=== PATIENT | female | born 1970 | race Caucasian/White ===

== ENCOUNTER 2016-07-15 09:00 | Emergency (ER) | payer OTHER ==
--- NOTE | 2016-07-15 09:37 | ED CLINICAL REPORT ---
Clinical Report - Physicians/Mid Levels [facility] [address] [place] [address] 07/15/2016 9:02 [id number] Time Seen: 09:08; initial patient contact. Arrived- By private vehicle. Historian- patient. HISTORY OF PRESENT ILLNESS Chief Complaint: Injury to right shoulder. The injury happened several months ago. Occurred at home. Fell; slipped (slipped on ice and braced her fall w/ her R arm jarring her shoulder.). Patient is experiencing moderate pain. Patient denies injury to the head or neck. ( Had plain films done, neg per pt. Awaiting MRI. Has not seen ortho.). REVIEW OF SYSTEMS The patient has had weakness. No swelling, tingling or numbness. She has had joint pain. All systems otherwise negative, except as recorded above. PAST HISTORY Lumbar Strain. Fibromyalgia. Migraine Headache. Pneumonia. MRSA. Cough. Bronchitis. Atypical Chest Pain. Arrhythmia. Murmur. SURGERIES: Appendectomy. Brain . Cholecystectomy. Hysterectomy. Knee. Tubal Ligation. The patient's dominant hand is the right and left. SOCIAL HISTORY Current every day smoker. ADDITIONAL NOTES The nursing notes have been reviewed with agreement regarding the chief complaint, PMH and patient medications and allergies. PHYSICAL EXAM Vital Signs: 07/15/2016 09:13 BP: 111/74. HR: 78. RR: 16. O2 saturation: 97%. Temp: 97.8 F. Have been reviewed as normal. Appearance: Alert. Oriented X3. No acute distress. Head: Head atraumatic. Skin: Skin intact. Normal skin color. Extremities: Right shoulder: moderate tenderness located in the deltoid muscle. Limited ROM due to pain (diminished abduction, flexion, extension and external and internal rotation). Neurovascular intact distally. No erythema, swelling or deformity. Extremities otherwise negative. Neuro, Vascular and Tendons: Sensation intact. Motor intact. Vascular status intact. Tendon function intact. Neuro: Oriented X 3. No motor deficit. PROGRESS AND PROCEDURES Disposition: Discharged home in good condition. Condition: good. CLINICAL IMPRESSION Traumatic right rotator cuff sprain. INSTRUCTIONS Apply ice for 20 minutes four times a day as needed. Don't apply ice directly to skin. Limit use of your right hand until better. Your Current Medications: CONTINUE TAKING THE FOLLOWING MEDICATIONS: Hydrocodone-Acetaminophen Oral : 10 mg 3x a day, prn. LaMICtal Oral : 50 mg daily. Omeprazole Oral. Topamax Oral : Tablet 50 mg, 2x a day. Tramadol HCL Oral : 50 mg 2x a day, chronic migraines. Prescription Medications: Diclofenac 50 mg tablets: take 1 tablet orally every 8 hours as needed for pain or stiffness. Dispense thirty (30). No refill. Follow-up: Screening today revealed the patient's blood pressure to be in the normal range. [facility] with: [facility], , [address] [place], [id number] Follow up in about one day. Call for an appointment. (Electronically signed by Reilly Reina Dr. 07/15/2016 9:39)
--- NOTE | 2016-07-15 09:37 | ED NURSING NOTES ---
Clinical Report - Nurses [facility] [address] [place] [address] 07/15/2016 9:02 [id number] TRI[facility] Triage time 09:09. Acuity: LEVEL 4. Chief Complaint: RIGHT UPPER EXTREMITY PAIN. Alert. --09:12 Tiny Covarrubias R.N. 09:13 07/15/16. BP: 111/74. HR: 78. RR: 16. O2 saturation: 97%. Temp: 97.8 F. Pain level now 12/02. --09:14 Tiny Covarrubias R.N. Weight: 71.6 kg stated. Height/Length: 69 inches Per Patient. BMI: 23.3. --09:08 Tiny Covarrubias R.N. Medications Hydrocodone-Acetaminophen Oral 10 mg, 3x a day as needed. LaMICtal Oral 50 mg, daily. Omeprazole Oral. Topamax Oral (Tablet 50 mg), 2x a day. Tramadol HCL Oral 50 mg, 2x a day, chronic migraines. --09:12 Tiny Covarrubias R.N. Allergies Latex. Percocet. Sulfa Antibiotics. --09:12 Tiny Covarrubias R.N. History Arrived by private vehicle. Historian: patient. Primary physician ([place]). Injury occurred. This occurred (2 months). ( Slipped on ice and still hurleeann LOAIZA told her she may have a torn rotator cuff and wants answers.). Treatment TOWER HAND: Ice. SOCIAL HX: Heavy tobacco smoker (cigarette)- less than 1 pack per day. --09:12 Tiny Covarrubias R.N. PROBLEMS: Lumbar Strain. Fibromyalgia. Migraine Headache. Pneumonia. MRSA. Cough. Bronchitis. Atypical Chest Pain. Arrhythmia. Murmur. --09:12 Tiny Covarrubias R.N. ADDITIONAL SURGERIES: Appendectomy. Brain . Cholecystectomy. Hysterectomy. Knee. Tubal Ligation. --09:12 Maziarka, Tiny, R.N. PHYSICAL ASSESSMENT Ambulatory to room. GENERAL / NEURO / PSYCH: Appears in no acute distress. EXTREMITIES: Right shoulder. --09:14 Tiny Covarrubias R.N. NURSING PROGRESS NOTES Two patient identifiers checked. Call light placed in reach. Patient ready for evaluation- ED physician notified. --09:14 Tiny Covarrubias R.N. DISPOSITION / DISCHARGE Departure time: 09:47. No learning barriers present. Discharge instructions provided and reviewed with the patient. Patient verbalized understanding. Written instructions provided in Nigerian. The patient was discharged home. She left the Emergency Department ambulatory and via private vehicle. Patient driving. --09:47 Tiny Covarrubias R.N. Locked/Released at 07/15/2016 9:48 by Tiny Covarrubias R.N.
--- NOTE | 2016-07-15 09:37 | ED CLINICAL REPORT ---
Clinical Report - Physicians/Mid Levels [facility] [address] [place] [address] 07/15/2016 9:02 [id number] Time Seen: 09:08; initial patient contact. Arrived- By private vehicle. Historian- patient. HISTORY OF PRESENT ILLNESS Chief Complaint: Injury to right shoulder. The injury happened several months ago. Occurred at home. Fell; slipped (slipped on ice and braced her fall w/ her R arm jarring her shoulder.). Patient is experiencing moderate pain. Patient denies injury to the head or neck. ( Had plain films done, neg per pt. Awaiting MRI. Has not seen ortho.). REVIEW OF SYSTEMS The patient has had weakness. No swelling, tingling or numbness. She has had joint pain. All systems otherwise negative, except as recorded above. PAST HISTORY Lumbar Strain. Fibromyalgia. Migraine Headache. Pneumonia. MRSA. Cough. Bronchitis. Atypical Chest Pain. Arrhythmia. Murmur. SURGERIES: Appendectomy. Brain . Cholecystectomy. Hysterectomy. Knee. Tubal Ligation. The patient's dominant hand is the right and left. SOCIAL HISTORY Current every day smoker. ADDITIONAL NOTES The nursing notes have been reviewed with agreement regarding the chief complaint, PMH and patient medications and allergies. PHYSICAL EXAM Vital Signs: 07/15/2016 09:13 BP: 111/74. HR: 78. RR: 16. O2 saturation: 97%. Temp: 97.8 F. Have been reviewed as normal. Appearance: Alert. Oriented X3. No acute distress. Head: Head atraumatic. Skin: Skin intact. Normal skin color. Extremities: Right shoulder: moderate tenderness located in the deltoid muscle. Limited ROM due to pain (diminished abduction, flexion, extension and external and internal rotation). Neurovascular intact distally. No erythema, swelling or deformity. Extremities otherwise negative. Neuro, Vascular and Tendons: Sensation intact. Motor intact. Vascular status intact. Tendon function intact. Neuro: Oriented X 3. No motor deficit. PROGRESS AND PROCEDURES Disposition: Discharged home in good condition. Condition: good. CLINICAL IMPRESSION Traumatic right rotator cuff sprain. INSTRUCTIONS Apply ice for 20 minutes four times a day as needed. Don't apply ice directly to skin. Limit use of your right hand until better. Your Current Medications: CONTINUE TAKING THE FOLLOWING MEDICATIONS: Hydrocodone-Acetaminophen Oral : 10 mg 3x a day, prn. LaMICtal Oral : 50 mg daily. Omeprazole Oral. Topamax Oral : Tablet 50 mg, 2x a day. Tramadol HCL Oral : 50 mg 2x a day, chronic migraines. Prescription Medications: Diclofenac 50 mg tablets: take 1 tablet orally every 8 hours as needed for pain or stiffness. Dispense thirty (30). No refill. Follow-up: Screening today revealed the patient's blood pressure to be in the normal range. [facility] with: [facility], , [address] [place], [id number] Follow up in about one day. Call for an appointment. (Electronically signed by Reilly Reina Dr. 07/15/2016 9:39)
--- NOTE | 2016-07-15 09:37 | ED NURSING NOTES ---
Clinical Report - Nurses [facility] [address] [place] [address] 07/15/2016 9:02 [id number] TRIAGE Triage time 09:09. Acuity: LEVEL 4. Chief Complaint: RIGHT UPPER EXTREMITY PAIN. Alert. --09:12 Tiny Covarrubias R.N. 09:13 07/15/16. BP: 111/74. HR: 78. RR: 16. O2 saturation: 97%. Temp: 97.8 F. Pain level now 12/02. --09:14 Tiny Covarrubias R.N. Weight: 71.6 kg stated. Height/Length: 69 inches Per Patient. BMI: 23.3. --09:08 Tiny Covarrubias R.N. Medications Hydrocodone-Acetaminophen Oral 10 mg, 3x a day as needed. LaMICtal Oral 50 mg, daily. Omeprazole Oral. Topamax Oral (Tablet 50 mg), 2x a day. Tramadol HCL Oral 50 mg, 2x a day, chronic migraines. --09:12 Tiny Covarrubias R.N. Allergies Latex. Percocet. Sulfa Antibiotics. --09:12 Tiny Covarrubias R.N. History Arrived by private vehicle. Historian: patient. Primary physician ([place]e). Injury occurred. This occurred (2 months). ( Slipped on ice and still hurleeann LOAIZA told her she may have a torn rotator cuff and wants answers.). Treatment ROD POINTER: Ice. SOCIAL HX: Heavy tobacco smoker (cigarette)- less than 1 pack per day. --09:12 Tiny Covarrubias R.N. PROBLEMS: Lumbar Strain. Fibromyalgia. Migraine Headache. Pneumonia. MRSA. Cough. Bronchitis. Atypical Chest Pain. Arrhythmia. Murmur. --09:12 Tiny Covarrubias R.N. ADDITIONAL SURGERIES: Appendectomy. Brain . Cholecystectomy. Hysterectomy. Knee. Tubal Ligation. --09:12 Maziarka, Tiny, R.N. PHYSICAL ASSESSMENT Ambulatory to room. GENERAL / NEURO / PSYCH: Appears in no acute distress. EXTREMITIES: Right shoulder. --09:14 Tiny Covarrubias R.N. NURSING PROGRESS NOTES Two patient identifiers checked. Call light placed in reach. Patient ready for evaluation- ED physician notified. --09:14 Tiny Covarrubias R.N. DISPOSITION / DISCHARGE Departure time: 09:47. No learning barriers present. Discharge instructions provided and reviewed with the patient. Patient verbalized understanding. Written instructions provided in Sri [place]ankan. The patient was discharged home. She left the Emergency Department ambulatory and via private vehicle. Patient driving. --09:47 Tiny Covarrubias R.N. Locked/Released at 07/15/2016 9:48 by Tiny Covarrubias R.N.
--- NOTE | 2016-07-15 09:48 | ED MAR SUMMARY ---
..... Medication Administration Record [facility] [address] [place], [place] [id number] Patient: VANESSA MELCHOR Visit ID: [id number] 46y, F Weight: 71.6 kg Height/Length: 69 in BMI: 23.3 ALLERGIES: Latex, Percocet, Sulfa Antibiotics
--- NOTE | 2016-07-15 09:48 | ED DISCHARGE INSTRUCTIONS ---
Patient: VANESSA MELCHOR General Instructions [facility] VisitID: [id number] [address] [place], [place] [id number] 46y, F Registration Date/Time: 07/15/2016 Traumatic right rotator cuff sprain. INSTRUCTIONS Apply ice for 20 minutes four times a day as needed. Don't apply ice directly to skin. Limit use of your right hand until better. Your Current Medications: CONTINUE TAKING THE FOLLOWING MEDICATIONS: Hydrocodone-Acetaminophen Oral : 10 mg 3x a day, prn. LaMICtal Oral : 50 mg daily. Omeprazole Oral. Topamax Oral : Tablet 50 mg, 2x a day. Tramadol HCL Oral : 50 mg 2x a day, chronic migraines. Prescription Medications: Diclofenac 50 mg tablets: take 1 tablet orally every 8 hours as needed for pain or stiffness. Dispense thirty (30). No refill. Follow-up: Screening today revealed the patient's blood pressure to be in the normal range. Follow-up with: [facility], , [address], [facility], [address] Follow up in about one day. Call for an appointment. ADDITIONAL INFORMATION Rotator Cuff Tear The rotator cuff is a group of muscles and tendons that surround the shoulder joint. These muscles and tendons hold the arm in its joint and help the shoulder to rotate. The rotator cuff can be torn from overuse or injury. Gradual wear and tear can lead to inflammation of these tendons, which can progress to gradual or sudden tears. Symptoms of a torn rotator cuff: Shoulder pain that gets worse when you raise your arm overhead Weakness of the shoulder muscles with overhead activity Popping and clicking with shoulder movement Shoulder pain wakes you up at night when sleeping on the affected shoulder Diagnosis is made by an MRI scan or arthroscopy (a surgical procedure to look inside the joint through a small tube). Partial rotator cuff tears can be treated by first resting, then strengthening the rotator cuff muscles. Anti-inflammatory medicines are useful. A limited number of steroid injections can be given. Surgery may be recommended for complete tears and partial tears that do not respond to medical treatment. Home Care: Avoid activities that make your pain worse - like overhead activities, doing the same motion over and over, and heavy lifting. Make an ice pack (ice in a plastic bag, wrapped in a towel) and apply over the injured area for 20 minutes every 1-2 hours for the first day. Continue with ice packs 3-4 times a day for the next two days. Continue using ice packs for pain relief if needed. You may use acetaminophen (Tylenol) or ibuprofen (Motrin, Advil) to control pain, unless another medicine was prescribed. [NOTE: If you have chronic liver or kidney disease or ever had a stomach ulcer or GI bleeding, talk with your doctor before using these medicines.] If a sling was provided, use it for comfort. After acute pain decreases, do not keep your arm in the sling all the time. Take it out several times a day and move the shoulder joint, as tolerated.You may benefit from physical therapy or a home exercise program to strengthen your shoulder muscles and increase your pain-free range of motion. Talk to your doctor about what is best for your condition. Follow Up with your doctor or as advised by our staff. Get Prompt Medical Attention if any of the following occur: Increasing shoulder pain Rapid swelling in the involved shoulder or arm Numbness, tingling, or pain radiating down the arm to the hand Loss of strength in the affected arm You have been given the following additional information: Rotator Cuff Tear Limit use of your right hand until better. (Electronically signed by Reilly Reina Dr. 07/15/2016 9:39)
--- NOTE | 2016-07-15 09:48 | ED MED RECONCILIATION SUMMARY ---
Patient: VANESSA MELCHOR Medication Reconciliation Report [facility] VisitID: [id number] [address] [place] [address] 46y, F Registration Date/Time: 07/15/2016 Weight: 71.6 kg Height/Length: 69 in. BMI: 23.3 ALLERGIES: Latex, Percocet, Sulfa Antibiotics The patient's Home Medications are listed below: CONTINUE TAKING THE FOLLOWING MEDICATIONS: Hydrocodone-Acetaminophen Oral 10 mg, 3x a day LaMICtal Oral 50 mg, daily Omeprazole Oral Topamax Oral (50 mg), 2x a day Tramadol HCL Oral 50 mg, 2x a day, chronic migraines The source(s) of the original Home Medication information: Not obtained. The following Medications were given to the patient in the Emergency Department: None. The following Medications were prescribed to the patient: Diclofenac 50 mg tablets: take 1 tablet orally every 8 hours as needed for pain or stiffness. Dispense thirty (30). No refill. -- Reilly Reina Dr.
--- NOTE | 2016-07-15 09:48 | ED DISCHARGE INSTRUCTIONS ---
Patient: VANESSA MELCHOR General Instructions [facility] VisitID: [id number] [address] [place], [place] [id number] 46y, F Registration Date/Time: 07/15/2016 Traumatic right rotator cuff sprain. INSTRUCTIONS Apply ice for 20 minutes four times a day as needed. Don't apply ice directly to skin. Limit use of your right hand until better. Your Current Medications: CONTINUE TAKING THE FOLLOWING MEDICATIONS: Hydrocodone-Acetaminophen Oral : 10 mg 3x a day, prn. LaMICtal Oral : 50 mg daily. Omeprazole Oral. Topamax Oral : Tablet 50 mg, 2x a day. Tramadol HCL Oral : 50 mg 2x a day, chronic migraines. Prescription Medications: Diclofenac 50 mg tablets: take 1 tablet orally every 8 hours as needed for pain or stiffness. Dispense thirty (30). No refill. Follow-up: Screening today revealed the patient's blood pressure to be in the normal range. Follow-up with: [facility], , [address], [facility], [address] Follow up in about one day. Call for an appointment. ADDITIONAL INFORMATION Rotator Cuff Tear The rotator cuff is a group of muscles and tendons that surround the shoulder joint. These muscles and tendons hold the arm in its joint and help the shoulder to rotate. The rotator cuff can be torn from overuse or injury. Gradual wear and tear can lead to inflammation of these tendons, which can progress to gradual or sudden tears. Symptoms of a torn rotator cuff: Shoulder pain that gets worse when you raise your arm overhead Weakness of the shoulder muscles with overhead activity Popping and clicking with shoulder movement Shoulder pain wakes you up at night when sleeping on the affected shoulder Diagnosis is made by an MRI scan or arthroscopy (a surgical procedure to look inside the joint through a small tube). Partial rotator cuff tears can be treated by first resting, then strengthening the rotator cuff muscles. Anti-inflammatory medicines are useful. A limited number of steroid injections can be given. Surgery may be recommended for complete tears and partial tears that do not respond to medical treatment. Home Care: Avoid activities that make your pain worse - like overhead activities, doing the same motion over and over, and heavy lifting. Make an ice pack (ice in a plastic bag, wrapped in a towel) and apply over the injured area for 20 minutes every 1-2 hours for the first day. Continue with ice packs 3-4 times a day for the next two days. Continue using ice packs for pain relief if needed. You may use acetaminophen (Tylenol) or ibuprofen (Motrin, Advil) to control pain, unless another medicine was prescribed. [NOTE: If you have chronic liver or kidney disease or ever had a stomach ulcer or GI bleeding, talk with your doctor before using these medicines.] If a sling was provided, use it for comfort. After acute pain decreases, do not keep your arm in the sling all the time. Take it out several times a day and move the shoulder joint, as tolerated.You may benefit from physical therapy or a home exercise program to strengthen your shoulder muscles and increase your pain-free range of motion. Talk to your doctor about what is best for your condition. Follow Up with your doctor or as advised by our staff. Get Prompt Medical Attention if any of the following occur: Increasing shoulder pain Rapid swelling in the involved shoulder or arm Numbness, tingling, or pain radiating down the arm to the hand Loss of strength in the affected arm You have been given the following additional information: Rotator Cuff Tear Limit use of your right hand until better. (Electronically signed by Reilly Reina Dr. 07/15/2016 9:39)
--- NOTE | 2016-07-15 09:48 | ED MAR SUMMARY ---
..... Medication Administration Record [facility] [address] [place], [place] [id number] Patient: VANESSA MELCHOR Visit ID: [id number] 46y, F Weight: 71.6 kg Height/Length: 69 in BMI: 23.3 ALLERGIES: Latex, Percocet, Sulfa Antibiotics
--- NOTE | 2016-07-15 09:48 | ED MED RECONCILIATION SUMMARY ---
Patient: VNAESSA MELCHOR Medication Reconciliation Report [facility] VisitID: [id number] [address] [place] [address] 46y, F Registration Date/Time: 07/15/2016 Weight: 71.6 kg Height/Length: 69 in. BMI: 23.3 ALLERGIES: Latex, Percocet, Sulfa Antibiotics The patient's Home Medications are listed below: CONTINUE TAKING THE FOLLOWING MEDICATIONS: Hydrocodone-Acetaminophen Oral 10 mg, 3x a day LaMICtal Oral 50 mg, daily Omeprazole Oral Topamax Oral (50 mg), 2x a day Tramadol HCL Oral 50 mg, 2x a day, chronic migraines The source(s) of the original Home Medication information: Not obtained. The following Medications were given to the patient in the Emergency Department: None. The following Medications were prescribed to the patient: Diclofenac 50 mg tablets: take 1 tablet orally every 8 hours as needed for pain or stiffness. Dispense thirty (30). No refill. -- Reilly Reina Dr.
== END 2016-07-15 09:47 | disposition home or self-care (01) ==
LOC: ED SRH 09:00
DX: S46.011A Strain of muscle(s) and tendon(s) of the rotator cuff of right shoulder, initial encounter (principal); W00.0XXA Fall on same level due to ice and snow, initial encounter; Y93.9 Activity, unspecified; Y92.009 Unspecified place in unspecified non-institutional (private) residence as the place of occurrence of the external cause; Y99.9 Unspecified external cause status; Z79.899 Other long term (current) drug therapy; Z88.5 Allergy status to narcotic agent; Z88.2 Allergy status to sulfonamides